=== PATIENT | female | born 1975 | race Caucasian/White ===

== ENCOUNTER 2017-03-19 16:27 | Emergency (ER) | payer OTHER, BC ==
[2017-03-19 18:08] LABS: BASOPHIL % 0.4 % (0-2); PLATELET COUNT 195 x10^3mcL (130-400); RED CELL DISTRIBUTION WIDTH 14.1 % (11.5-14.5)
[2017-03-19 18:23] LABS: CALCIUM 8.8 mg/dL (8.5-10.1); CARBON DIOXIDE 24.8 mmol/L (21-32); CHLORIDE SERUM 108 mmol/L (98-107); CREATININE SERUM 0.8 mg/dL (0.6-1.0); GFR1 > 60 mL/min; GLUCOSE SERUM 92 mg/dL (74-106); POTASSIUM SERUM 3.2 mmol/L (3.5-5.1); SODIUM SERUM 143 mmol/L (136-145)
[2017-03-19 18:28] LABS: ALBUMIN 3.5 g/dL (3.4-5.0); ALKALINE PHOSPHATASE 50 U/L (46-116); ALT/SGPT 13 U/L (14-59); AST/SGOT 14 U/L (15-37); BILIRUBIN TOTAL 0.31 mg/dL (0.20-1.00); TOTAL PROTEIN, SERUM 6.8 g/dL (6.4-8.2)
[2017-03-19 18:38] LABS: T3 TOTAL 1.21 ng/mL
[2017-03-19 18:56] LABS: FREE THYROXINE INDEX 2.9 ug/dL (1.4-4.5); T4(THYROXINE) 8.2 ug/dL (4.7-13.3)
[2017-03-19 19:31] VITALS: BP 119/74
== END 2017-03-19 19:31 | disposition home or self-care (01) ==
LOC: ED 16:27
PROVIDERS: Emergency Medicine
DX: J20.9 Acute bronchitis, unspecified (principal)
CPT/HCPCS: 83880; 84439; 85378; J7030; J7613; J7644; Q0092

== ENCOUNTER 2017-04-09 21:23 | Emergency (ER) | payer BC, OTHER ==
[~2017-04-09] VITALS: Ht 165.1 cm; Wt 80.3 kg
[2017-04-09 22:32] LABS: BASOPHIL % 0.6 % (0-2); PLATELET COUNT 227 x10^3mcL (130-400)
[2017-04-09 22:33] LABS: RED CELL DISTRIBUTION WIDTH 14.6 % (11.5-14.5)
[2017-04-09 22:38] LABS: CALCIUM 8.3 mg/dL (8.5-10.1); CARBON DIOXIDE 27.8 mmol/L (21-32); CHLORIDE SERUM 106 mmol/L (98-107); GFR1 > 60 mL/min; GLUCOSE SERUM 88 mg/dL (74-106); POTASSIUM SERUM 3.4 mmol/L (3.5-5.1); SODIUM SERUM 145 mmol/L (136-145)
[2017-04-09 22:41] LABS: ALBUMIN 3.7 g/dL (3.4-5.0); ALKALINE PHOSPHATASE 46 U/L (46-116); ALT/SGPT 19 U/L (14-59); AST/SGOT 19 U/L (15-37); BILIRUBIN TOTAL 0.2 mg/dL (0.20-1.00); TOTAL PROTEIN, SERUM 7.1 g/dL (6.4-8.2)
[2017-04-09 22:53] LABS: T4(THYROXINE) 7.9 ug/dL (4.7-13.3)
[2017-04-10] VITALS: BP 101/66
== END 2017-04-10 00:26 | disposition home or self-care (01) ==
LOC: ED 21:23
PROVIDERS: Emergency Medicine
DX: J02.9 Acute pharyngitis, unspecified (principal); G47.419 Narcolepsy without cataplexy; F41.9 Anxiety disorder, unspecified; F31.9 Bipolar disorder, unspecified; Z98.51 Tubal ligation status
CPT/HCPCS: 36415; J1100; Q0092